=== PATIENT | female | born 1995 | race African-American/Black ===

== ENCOUNTER → 2023-05-07 | Emergency (ER) | payer SELFPAY ==
[~2023-05-07] MED LIST: ACETAMINOPHEN 500 MG TAB ONE; IBUPROFEN 200 MG TAB PO ONE; IBUPROFEN 400 MG TAB ONE; LIDOCAINE 1% 20 ML MDV ONE; TDAP (DIPHTH,PERTUSS(ACELL),TET VAC) 0.5 ML VIAL IMVAC ONE
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
[2023-05-08 01:59] VITALS: TEMP 98.1
[2023-05-08 02:04] VITALS: BP 116/81; O2SAT 100
== END ==
LOC: ER 22:53
PROC: 0HQEXZZ Repair Left Lower Arm Skin, External Approach (ICD-10-PCS; principal; 2023-05-07)
DX: S51.812A Laceration without foreign body of left forearm, initial encounter (principal)
CPT/HCPCS: 96372; 99284